=== PATIENT | female | born 1970 | race African-American/Black ===

== ENCOUNTER 2016-11-19 21:55 | Emergency (ER) | payer MEDICARE, OTHER ==
[~2016-11-19] VITALS: Ht 167.6 cm; Wt 75.0 kg
[~2016-11-19 21:55] MED LIST: CALC-586 PO; CARV12.545 PO; FOLI0.8T23 PO; FOS1G PO; HYDR200T PO; ISOS1TAB PO; PRED1TAB PO; SEVE800T PO
[2016-11-19] MEDS ORDERED: ALBUTEROL (0.083%) 2.5MG/3ML NEB HHN STA (21:56)
[2016-11-19] MEDS ORDERED: METHYLPREDNISOLONE SOD SUCC 125 MG/2 ML VIAL IV STA (21:56)
[2016-11-19] MEDS ORDERED: IPRATROPIUM BROMIDE (0.02%) 0.5MG/2.5ML NEB HHN STA (21:56)
[2016-11-19] MEDS ORDERED: MAGNESIUM 2 G PREMIX 50 ML IV STA (21:56)
[2016-11-19] MEDS ORDERED: ALBUTEROL (0.5%) 2.5MG/0.5ML NEB HHN ONE (22:21)
[2016-11-19 22:35] LABS: BASOPHILS % 1.3 % (0.0-2.0); HEMATOCRIT. 35.2 % (36.0-48.0); HEMOGLOBIN. 11.1 g/dL (12.0-16.0); LYMPHOCYTES % 14.5 % (20.0-50.0); MEAN CORPUSCULAR HEMOGLOBIN 28.4 pg (28.0-32.0); MEAN CORPUSCULAR HGB CONC 31.5 g/dL (31.0-37.0); MEAN CORPUSCULAR VOLUME 89.9 fL (81.0-99.0); MEAN PLATELET VOLUME 9.7 fl (7.4-10.4); MONOCYTES % 9.3 % (2.0-8.0); NEUTROPHILS % 71.9 % (40.0-76.0); PLATELET 236 x1000/uL (130-400); RED BLOOD CELL COUNT 3.91 mill/uL (4.2-5.4); RED CELL DISTRIBUTION WIDTH 14.4 % (11.6-14.6)
[2016-11-19 22:38] LABS: CHLORIDE 99 mEq/L (98-107); INDEX HEMOLYSI 1 (1-3); INDEX ICTERIC 1 (1-4); INDEX LIPEMIC 1 (1-3)
[2016-11-19 22:40] LABS: PROTHROMBIN TIME 10.7 sec
[2016-11-19 22:47] LABS: ALANINE AMINOTRANSFERASE 15 IU/L (13-61); ANION GAP 19; CALCIUM 9.6 mg/dL (8.5-10.1); CARBON DIOXIDE 29 mEq/L (21-32); NT PRO B-TYPE NATRIURETIC PEP 2953 pg/mL (5-125); TROPONIN I 0.03 ng/mL (0.00-0.04); UREA NITROGEN BLOOD 48 mg/dL (7-21); eGFR 5 mL/min (>60)
[2016-11-19] MEDS ORDERED: SODIUM CHLORIDE 0.9% 500 ML IV ONE (22:54)
[2016-11-20] MEDS ORDERED: ONDANSETRON HCL 4MG/2ML VIAL IV ONE
[2016-11-20 00:05] VITALS: BP 162/116
== END 2016-11-20 01:24 | disposition home or self-care (01) ==
LOC: ER 21:58
DX: J45.901 Unspecified asthma with (acute) exacerbation (principal); R11.2 Nausea with vomiting, unspecified; I51.7 Cardiomegaly; M32.9 Systemic lupus erythematosus, unspecified; N18.6 End stage renal disease; Z99.2 Dependence on renal dialysis
CPT/HCPCS: 36415; 71010; 80053; 83880; 84484; 85025; 85610; 93005; 94644; 96365; 96366; 96375; 99285; J2405; J2930; J3475; J7611; J7030

== ENCOUNTER 2017-01-11 23:10 | Inpatient (IN) | payer MEDICARE, MEDICAID ==
[~2017-01-11] VITALS: Ht 157.5 cm; Wt 59.0 kg
[2017-01-11] MEDS ORDERED: LABETALOL 5MG/ML SYR 20 MG/4 ML SYRINGE IV ONE (23:45)
[2017-01-11 23:56] LABS: BASOPHILS % 1.1 % (0.0-2.0); EOSINOPHILS % 2.6 % (0.0-5.0); HEMATOCRIT. 32.4 % (36.0-48.0); HEMOGLOBIN. 10.3 g/dL (12.0-16.0); LYMPHOCYTES % 10.3 % (20.0-50.0); MEAN CORPUSCULAR HEMOGLOBIN 28.1 pg (28.0-32.0); MEAN CORPUSCULAR HGB CONC 31.7 g/dL (31.0-37.0); MEAN CORPUSCULAR VOLUME 88.7 fL (81.0-99.0); MEAN PLATELET VOLUME 9.3 fl (7.4-10.4); MONOCYTES % 10.4 % (2.0-8.0); NEUTROPHILS % 75.6 % (40.0-76.0); PLATELET 226 x1000/uL (130-400); RED BLOOD CELL COUNT 3.65 mill/uL (4.2-5.4); RED CELL DISTRIBUTION WIDTH 15.8 % (11.6-14.6); WHITE BLOOD COUNT 14.4 x1000/uL (4.5-11.0)
[2017-01-12 00:16] LABS: ANION GAP 15; CALCIUM 9.7 mg/dL (8.5-10.1); CARBON DIOXIDE 30 mEq/L (21-32); CHLORIDE 99 mEq/L (98-107); INDEX HEMOLYSI 1 (1-3); INDEX ICTERIC 1 (1-4); INDEX LIPEMIC 1 (1-3); TROPONIN I < 0.02 ng/mL (0.00-0.04); UREA NITROGEN BLOOD 32 mg/dL (7-21); eGFR 6 mL/min (>60)
[2017-01-12 08:00] VITALS: BP 151/104
[2017-01-12] MEDS ORDERED: DIPHENHYDRAMINE 50MG/ML VIAL IV NR ×2 (09:18→19:00)
[2017-01-12 09:23] LABS: CALCIUM 8.6 mg/dL (8.5-10.1)
[2017-01-12] MEDS ORDERED: POTASSIUM CHLORIDE 20MEQ TABLET SR PO NR (10:15)
[2017-01-12 11:19] VITALS: BP 160/100
[2017-01-12] MEDS: CARVEDILOL 12.5MG TABLET PO SCH (11:20)
[2017-01-12] MEDS: FOLIC ACID/VITAMIN B COMP W-C TABLET PO SCH (11:20)
[2017-01-12 12:00] VITALS: BP 148/90
[2017-01-12] MEDS: HYDRALAZINE HCL 25MG TABLET PO SCH ×2 (13:35→21:09)
[2017-01-12] MEDS: SEVELAMER CARBONATE 800 MG TABLET PO SCH ×3 (13:35→18:55)
[2017-01-12 16:00] VITALS: BP 143/91
[2017-01-12] MEDS: ISOSORBIDE DINITRATE 20MG TABLET PO SCH (17:17)
[2017-01-12 20:00] VITALS: BP 143/96
[2017-01-12] MEDS ORDERED: EPOETIN ALFA 4000UNITS/ML VIAL SUBCUT SCH (21:00)
[2017-01-13] VITALS: BP 145/95
[2017-01-13 04:00] VITALS: BP 154/98
[2017-01-13] MEDS: HYDRALAZINE HCL 25MG TABLET PO SCH (05:30)
[2017-01-13 06:55] LABS: HEMATOCRIT. 34.7 % (36.0-48.0); HEMOGLOBIN. 11.4 g/dL (12.0-16.0); MEAN CORPUSCULAR HEMOGLOBIN 29.3 pg (28.0-32.0); MEAN CORPUSCULAR HGB CONC 32.7 g/dL (31.0-37.0); MEAN CORPUSCULAR VOLUME 89.4 fL (81.0-99.0); PLATELET 204 x1000/uL (130-400); RED BLOOD CELL COUNT 3.88 mill/uL (4.2-5.4); RED CELL DISTRIBUTION WIDTH 15.6 % (11.6-14.6); WHITE BLOOD COUNT 7.3 x1000/uL (4.5-11.0)
[2017-01-13 07:26] LABS: DIFFERENTIAL COMMENT 1
[2017-01-13 07:35] LABS: CALCIUM 9.3 mg/dL (8.5-10.1); PHOSPHORUS 4.6 mg/dL (2.5-4.9)
[2017-01-13 08:00] VITALS: BP 135/87
[2017-01-13] MEDS: SEVELAMER CARBONATE 800 MG TABLET PO SCH (08:10)
[2017-01-13] MEDS: ISOSORBIDE DINITRATE 20MG TABLET PO SCH (08:34)
[2017-01-13] MEDS: CARVEDILOL 12.5MG TABLET PO SCH (08:35)
[2017-01-13] MEDS: FOLIC ACID/VITAMIN B COMP W-C TABLET PO SCH (08:35)
[2017-01-13 10:29] LABS: GIANT PLATELETS 1+; PLATELET ESTIMATE NORMAL
[2017-01-13 12:00] VITALS: BP 117/86
[2017-01-13 13:34] VITALS: BP 117/86
== END 2017-01-13 14:46 | disposition home or self-care (01) | DRG 291 ==
LOC: ER 23:12 → 7WST 01-12 00:28
PROVIDERS: ADMIT Internal Medicine; ATTEND Internal Medicine
PROC: 5A1D00Z (ICD-10-PCS; principal; 2017-01-12)
DX: I13.2 Hypertensive heart and chronic kidney disease with heart failure and with stage 5 chronic kidney disease, or end stage renal disease (principal); J96.00 Acute respiratory failure, unspecified whether with hypoxia or hypercapnia; I50.31 Acute diastolic (congestive) heart failure; N18.6 End stage renal disease; N25.81 Secondary hyperparathyroidism of renal origin; I42.9 Cardiomyopathy, unspecified; D64.9 Anemia, unspecified; H91.90 Unspecified hearing loss, unspecified ear; J44.9 Chronic obstructive pulmonary disease, unspecified; F41.9 Anxiety disorder, unspecified; T78.3XXA Angioneurotic edema, initial encounter; T36.8X5A Adverse effect of other systemic antibiotics, initial encounter; L30.9 Dermatitis, unspecified; J94.9 Pleural condition, unspecified; M32.9 Systemic lupus erythematosus, unspecified; Z80.8 Family history of malignant neoplasm of other organs or systems; Z82.49 Family history of ischemic heart disease and other diseases of the circulatory system; Z82.5 Family history of asthma and other chronic lower respiratory diseases; Z99.2 Dependence on renal dialysis; Z88.1 Allergy status to other antibiotic agents; Z79.899 Other long term (current) drug therapy; Y92.89 Other specified places as the place of occurrence of the external cause
CPT/HCPCS: 36415; 71010; 80048; 84100; 84484; 85025; 93005; 99285; J0885; J1200; J3490

== ENCOUNTER 2017-02-01 08:10 | Day surgery (SDC) | payer MEDICARE, MEDICAID ==
[~2017-02-01] VITALS: Ht 157.5 cm; Wt 57.2 kg
[2017-02-01] MEDS ORDERED: HYDR-4134 PO (09:33)
[2017-02-01] MEDS ORDERED: IOHEXOL-300 100 ML BOTTLE ONE (10:20)
[2017-02-01] MEDS ORDERED: LIDOCAINE HCL 1% 20ML VIAL (Pyxis) INJ ONE (10:21)
[2017-02-01] MEDS ORDERED: MIDAZOLAM HCL 2 MG/2 ML VIAL ONE ×2 (10:23→10:42)
[2017-02-01] MEDS ORDERED: FENTANYL CITRATE/PF 50MCG/ML 2ML VIAL ONE (10:24)
[2017-02-01] MEDS ORDERED: FAMOTIDINE 20MG/2ML VIAL IV ONE (10:39)
[2017-02-01] MEDS ORDERED: HYDROCORTISONE SOD SUCCINATE 250 MG/2 ML VIAL ONE (10:39)
[2017-02-01] MEDS ORDERED: DIPHENHYDRAMINE 50MG/ML VIAL ONE (10:39)
[2017-02-01] MEDS ORDERED: ONDANSETRON HCL 4MG/2ML VIAL IV PRN (11:15)
[2017-02-01 11:54] LABS: HEPATITIS B SURFACE ANTIGEN NEGATIVE
[2017-02-01 12:22] LABS: HEPATITIS C VIR.AB 0.14 INDEXVAL (0.00-0.80)
[2017-02-01] MEDS ORDERED: ACETAMINOPHEN WITH CODEINE 300/30MG TABLET PO NR (15:15)
[2017-02-01 16:34] VITALS: BP 156/97
== END 2017-02-01 17:05 | disposition home or self-care (01) ==
LOC: CCL 08:10
PROVIDERS: ATTEND Specialist
DX: I12.0 Hypertensive chronic kidney disease with stage 5 chronic kidney disease or end stage renal disease (principal); I73.89 Other specified peripheral vascular diseases; N18.6 End stage renal disease; I50.30 Unspecified diastolic (congestive) heart failure; I70.213 Atherosclerosis of native arteries of extremities with intermittent claudication, bilateral legs
CPT/HCPCS: 36246; 36415; 75630; 75710; 93458; C1760; C1769; C1887; C1893; J1200; J1644; J1720; J2250; J3010; J3490; Q9967

== ENCOUNTER 2018-05-06 09:58 | Emergency (ER) | payer MEDICARE, MEDICAID ==
[~2018-05-06] VITALS: Ht 154.9 cm; Wt 55.0 kg
[~2018-05-06 09:58] MED LIST changes: +AMLO10TA80 MT; +CYCL10TA7 MT; +FAMO20TA8 MT; +HYDR-4134 PO; -HYDR200T PO; +HYDR200T80 PO; +LORA10TA7 MT; +MINO2.5T2 MT; +PRED1TAB MT; +REN800 PO; -SEVE800T PO
[2018-05-06 10:05] VITALS: BP 153/91
[2018-05-06] MEDS ORDERED: TETRACAINE 0.5% OPHTH DROPS 4ML OP ONE (11:45)
[2018-05-06] MEDS ORDERED: FLUORESCEIN SODIUM 1MG/STRIP OP ONE (11:45)
== END 2018-05-06 13:53 | disposition home or self-care (01) ==
LOC: ER 10:49
DX: H10.9 Unspecified conjunctivitis (principal); I13.0 Hypertensive heart and chronic kidney disease with heart failure and stage 1 through stage 4 chronic kidney disease, or unspecified chronic kidney disease; N18.9 Chronic kidney disease, unspecified; I50.9 Heart failure, unspecified; H91.90 Unspecified hearing loss, unspecified ear; J44.9 Chronic obstructive pulmonary disease, unspecified
CPT/HCPCS: 99283

== ENCOUNTER 2018-07-19 17:24 | Inpatient (IN) | payer MEDICARE, MEDICAID ==
[~2018-07-19] VITALS: Ht 157.5 cm; Wt 56.5 kg
[2018-07-19 19:21] LABS: BASOPHILS % 0.6 % (0.0-2.0); EOSINOPHILS % 4.1 % (0.0-5.0); HEMATOCRIT. 33.5 % (36.0-48.0); HEMOGLOBIN. 10.8 g/dL (12.0-16.0); LYMPHOCYTES % 12.2 % (20.0-50.0); MEAN CORPUSCULAR HEMOGLOBIN 32.4 pg (28.0-32.0); MEAN PLATELET VOLUME 9.9 fl (7.4-10.4); MONOCYTES % 14.4 % (2.0-8.0); NEUTROPHILS % 68.7 % (40.0-76.0); PLATELET 185 x1000/uL (130-400); RED BLOOD CELL COUNT 3.35 mill/uL (4.2-5.4); RED CELL DISTRIBUTION WIDTH 16.3 % (11.6-14.6)
[2018-07-19 19:28] LABS: CHLORIDE 102 mEq/L (98-107)
[2018-07-19 19:31] LABS: HCG SCREEN NEGATIVE
[2018-07-19 22:40] VITALS: BP 150/90
[2018-07-20] VITALS (7 sets, daily range): BP systolic 137–163; BP diastolic 83–99
[2018-07-20] MEDS ORDERED: IPRATROPIUM/ALBUTEROL 0.5-3(2.5)MG/3ML NEB HHN STA (00:45)
[2018-07-20] MEDS ORDERED: MORPHINE SULFATE 4 MG/ML CPJ (NOT FOR IM USE) IV PRN (01:00)
[2018-07-20] MEDS ORDERED: ACETAMINOPHEN 325MG TABLET PO PRN (01:00)
[2018-07-20] MEDS ORDERED: IPRATROPIUM/ALBUTEROL 0.5-3(2.5)MG/3ML NEB HHN PRN (01:00)
[2018-07-20] MEDS: IPRATROPIUM/ALBUTEROL 0.5-3(2.5)MG/3ML NEB HHN SCH ×5 (04:01→20:45)
[2018-07-20] MEDS ORDERED: CYCLOBENZAPRINE 10MG TABLET PO PRN (08:45)
[2018-07-20] MEDS ORDERED: ENOXAPARIN 40MG/0.4ML SYR SUBCUT SCH (09:00)
[2018-07-20] MEDS: AMLODIPINE 10MG TABLET PO SCH (09:00)
[2018-07-20] MEDS: DOCUSATE SODIUM 250MG CAPSULE PO SCH (09:18)
[2018-07-20] MEDS: ENOXAPARIN 30MG/0.3ML SYR SUBCUT SCH (09:18)
[2018-07-20] MEDS: CALCIUM CARBONATE 1250MG TABLET (500MG ELEMENTAL CALCIUM) PO SCH (09:19)
[2018-07-20] MEDS: FAMOTIDINE 20MG TABLET PO SCH (09:19)
[2018-07-20] MEDS: FOLIC ACID/VITAMIN B COMP W-C TABLET PO SCH (09:19)
[2018-07-20] MEDS: CARVEDILOL 12.5MG TABLET PO SCH ×2 (09:20→20:39)
[2018-07-20] MEDS: ISOSORB DINIT/HYDRALAZINE HCL 20/37.5MG TABLET PO SCH ×2 (10:00→20:39)
[2018-07-20] MEDS: CALCIUM ACETATE 667MG CAPSULE PO SCH ×3 (12:25→20:41)
[2018-07-20] MEDS: PREDNISONE 1MG TABLET PO SCH (12:25)
[2018-07-20] MEDS: HYDROXYCHLOROQUINE SULFATE 200MG TABLET PO SCH (12:25)
[2018-07-20] MEDS ORDERED: SEVELAMER CARBONATE 800 MG TABLET PO SCH (12:50)
[2018-07-20] MEDS ORDERED: HYDRALAZINE HCL 25MG TABLET PO SCH (14:00)
[2018-07-20] MEDS ORDERED: DIPHENHYDRAMINE 50MG/ML VIAL IV PRN (15:50)
[2018-07-20] MEDS ORDERED: ONDANSETRON HCL 4MG/2ML INJ IV PRN (16:30)
[2018-07-21] VITALS: BP 144/93
[2018-07-21] MEDS: IPRATROPIUM/ALBUTEROL 0.5-3(2.5)MG/3ML NEB HHN SCH ×4 (00:41→12:51)
[2018-07-21 04:00] VITALS: BP 135/87
[2018-07-21 07:20] LABS: BASOPHILS % 0.4 % (0.0-2.0); EOSINOPHILS % 3.4 % (0.0-5.0); HEMATOCRIT. 33.1 % (36.0-48.0); HEMOGLOBIN. 10.8 g/dL (12.0-16.0); LYMPHOCYTES % 8.2 % (20.0-50.0); MEAN CORPUSCULAR HEMOGLOBIN 33.3 pg (28.0-32.0); MEAN CORPUSCULAR VOLUME 102.2 fL (81.0-99.0); MEAN PLATELET VOLUME 10.4 fl (7.4-10.4); MONOCYTES % 12.4 % (2.0-8.0); NEUTROPHILS % 75.6 % (40.0-76.0); PLATELET 159 x1000/uL (130-400); RED BLOOD CELL COUNT 3.24 mill/uL (4.2-5.4); RED CELL DISTRIBUTION WIDTH 15.7 % (11.6-14.6)
[2018-07-21 08:00] VITALS: BP 163/97
[2018-07-21 08:10] LABS: PHOSPHORUS 6.9 mg/dL (2.5-4.9)
[2018-07-21] MEDS ORDERED: MINOXIDIL 2.5MG TABLET PO SCH (09:00)
[2018-07-21] MEDS ORDERED: LACTULOSE 20G/30ML UDC PO PRN (09:00)
[2018-07-21] MEDS: DOCUSATE SODIUM 250MG CAPSULE PO SCH (09:14)
[2018-07-21] MEDS: CARVEDILOL 12.5MG TABLET PO SCH (09:15)
[2018-07-21] MEDS: ISOSORB DINIT/HYDRALAZINE HCL 20/37.5MG TABLET PO SCH (09:15)
[2018-07-21] MEDS: AMLODIPINE 10MG TABLET PO SCH (09:15)
[2018-07-21] MEDS: FAMOTIDINE 20MG TABLET PO SCH (09:16)
[2018-07-21] MEDS: PREDNISONE 1MG TABLET PO SCH (09:16)
[2018-07-21] MEDS: HYDROXYCHLOROQUINE SULFATE 200MG TABLET PO SCH (09:16)
[2018-07-21] MEDS: CALCIUM CARBONATE 1250MG TABLET (500MG ELEMENTAL CALCIUM) PO SCH (09:16)
[2018-07-21] MEDS: FOLIC ACID/VITAMIN B COMP W-C TABLET PO SCH (09:16)
[2018-07-21] MEDS: ENOXAPARIN 30MG/0.3ML SYR SUBCUT SCH (09:51)
[2018-07-21 12:20] VITALS: BP 143/97
[2018-07-21] MEDS ORDERED: CALCIUM ACETATE 667MG CAPSULE PO SCH (12:50)
[2018-07-21 14:04] VITALS: BP 122/74
[2018-07-21] MEDS ORDERED: DOXAZOSIN MESYLATE 2MG TABLET PO SCH (21:00)
[2018-07-22] MEDS ORDERED: EPOETIN ALFA 4000UNITS/ML VIAL SUBCUT SCH (21:00)
== END 2018-07-21 14:30 | disposition home or self-care (01) | DRG 291 ==
LOC: ER 17:24 → 6WST 20:37 → EDBEDREQ 20:41 → EDBEDREQTM 20:41 → ENRESERV 21:05
PROVIDERS: ADMIT Internal Medicine; ATTEND Internal Medicine
PROC: 5A1D70Z Performance of Urinary Filtration, Intermittent, Less than 6 Hours Per Day (ICD-10-PCS; principal; 2018-07-20)
PROC: 5A1D70Z Performance of Urinary Filtration, Intermittent, Less than 6 Hours Per Day (ICD-10-PCS; 2018-07-21)
DX: I13.2 Hypertensive heart and chronic kidney disease with heart failure and with stage 5 chronic kidney disease, or end stage renal disease (principal); I50.31 Acute diastolic (congestive) heart failure; N18.6 End stage renal disease; E46 Unspecified protein-calorie malnutrition; N25.81 Secondary hyperparathyroidism of renal origin; D64.9 Anemia, unspecified; F41.9 Anxiety disorder, unspecified; H91.90 Unspecified hearing loss, unspecified ear; J44.9 Chronic obstructive pulmonary disease, unspecified; K59.00 Constipation, unspecified; M32.9 Systemic lupus erythematosus, unspecified; Z88.1 Allergy status to other antibiotic agents; Z88.8 Allergy status to other drugs, medicaments and biological substances
CPT/HCPCS: 36415; 71045; 71250; 80048; 83880; 84100; 84484; 84703; 93005; 93306; 93970; 94640; 99285; J1200; J1650; J2405; J7030; J7050; J7512; J7620

== ENCOUNTER 2018-07-22 05:48 | Inpatient (IN) | payer MEDICARE, MEDICAID ==
[~2018-07-22] VITALS: Ht 157.5 cm; Wt 59.9 kg
[2018-07-22] VITALS (7 sets, daily range): BP systolic 138–144; BP diastolic 79–88
[2018-07-22] MEDS ORDERED: METHYLPREDNISOLONE SOD SUCC 125 MG/2 ML VIAL IV STA (06:37)
[2018-07-22] MEDS ORDERED: ALBUTEROL (0.083%) 2.5MG/3ML NEB HHN STA ×2 (06:37→09:42)
[2018-07-22] MEDS ORDERED: IPRATROPIUM BROMIDE (0.02%) 0.5MG/2.5ML NEB HHN STA (06:37)
[2018-07-22 07:30] LABS: CHLORIDE 99 mEq/L (98-107)
[2018-07-22 07:33] LABS: BASOPHILS % 0.3 % (0.0-2.0); EOSINOPHILS % 3.2 % (0.0-5.0); HEMATOCRIT. 37.3 % (36.0-48.0); LYMPHOCYTES % 11.2 % (20.0-50.0); MEAN CORPUSCULAR HEMOGLOBIN 33.1 pg (28.0-32.0); MEAN CORPUSCULAR VOLUME 103.2 fL (81.0-99.0); MEAN PLATELET VOLUME 9.9 fl (7.4-10.4); MONOCYTES % 10.9 % (2.0-8.0); NEUTROPHILS % 74.4 % (40.0-76.0); PLATELET 162 x1000/uL (130-400); RED BLOOD CELL COUNT 3.61 mill/uL (4.2-5.4)
[2018-07-22] MEDS ORDERED: LEVOFLOXACIN 750MG PREMIX 150 ML IV ONE (11:45)
[2018-07-22] MEDS: CALCIUM CARBONATE 1250MG TABLET (500MG ELEMENTAL CALCIUM) PO SCH (16:30)
[2018-07-22] MEDS: CARVEDILOL 12.5MG TABLET PO SCH (17:00)
[2018-07-22] MEDS: LORATADINE 10MG TABLET PO SCH (17:00)
[2018-07-22] MEDS: METHYLPREDNISOLONE SOD SUCC 40 MG/ML VIAL IV SCH (17:00)
[2018-07-22] MEDS: AMLODIPINE 10MG TABLET PO SCH (17:00)
[2018-07-22] MEDS: ISOSORB DINIT/HYDRALAZINE HCL 20/37.5MG TABLET PO SCH (17:00)
[2018-07-22] MEDS: DOCUSATE SODIUM 100MG CAPSULE PO SCH (18:45)
[2018-07-22] MEDS ORDERED: LORAZEPAM 1MG TABLET PO PRN (18:45)
[2018-07-22] MEDS ORDERED: DIPHENHYDRAMINE 50MG/ML VIAL IV NR (18:45)
[2018-07-23] VITALS (18 sets, daily range): BP systolic 113–182; BP diastolic 65–119
[2018-07-23] MEDS: IPRATROPIUM/ALBUTEROL 0.5-3(2.5)MG/3ML NEB HHN SCH ×6 (00:56→19:47)
[2018-07-23] MEDS: METHYLPREDNISOLONE SOD SUCC 40 MG/ML VIAL IV SCH ×3 (01:00→17:33)
[2018-07-23 07:33] LABS: HEMATOCRIT. 36.9 % (36.0-48.0); HEMOGLOBIN. 11.9 g/dL (12.0-16.0); MEAN CORPUSCULAR HEMOGLOBIN 32.8 pg (28.0-32.0); MEAN CORPUSCULAR VOLUME 101.9 fL (81.0-99.0); MEAN PLATELET VOLUME 10.9 fl (7.4-10.4); PLATELET 156 x1000/uL (130-400); RED BLOOD CELL COUNT 3.62 mill/uL (4.2-5.4)
[2018-07-23] MEDS: CALCIUM CARBONATE 1250MG TABLET (500MG ELEMENTAL CALCIUM) PO SCH (08:54)
[2018-07-23] MEDS: DOCUSATE SODIUM 100MG CAPSULE PO SCH ×2 (08:54→17:32)
[2018-07-23] MEDS: LORATADINE 10MG TABLET PO SCH (08:57)
[2018-07-23] MEDS: ISOSORB DINIT/HYDRALAZINE HCL 20/37.5MG TABLET PO SCH ×2 (08:58→17:32)
[2018-07-23] MEDS: AMLODIPINE 10MG TABLET PO SCH (08:58)
[2018-07-23] MEDS: CARVEDILOL 12.5MG TABLET PO SCH (08:58)
[2018-07-23] MEDS ORDERED: FOLIC ACID/VITAMIN B COMP W-C TABLET PO SCH (09:00)
[2018-07-23] MEDS: CALCIUM ACETATE 667MG CAPSULE PO SCH ×2 (12:20→17:33)
[2018-07-23 12:24] LABS: PARTIAL THROMBOPLASTIN TIME 26.4 sec (23.4-31.0)
[2018-07-23] MEDS ORDERED: SODIUM BICARBONATE 4% (2.4MEQ) 5ML VIAL IV ONE (12:45)
[2018-07-23] MEDS: DILTIAZEM HCL 60MG TABLET PO SCH ×2 (13:24→22:02)
[2018-07-23 17:32] LABS: PLATELET ESTIMATE NORMAL
[2018-07-24] VITALS (9 sets, daily range): BP systolic 113–163; BP diastolic 68–98
[2018-07-24] MEDS: METHYLPREDNISOLONE SOD SUCC 40 MG/ML VIAL IV SCH ×3 (03:49→16:53)
[2018-07-24] MEDS: IPRATROPIUM/ALBUTEROL 0.5-3(2.5)MG/3ML NEB HHN SCH ×7 (04:05→23:47)
[2018-07-24] MEDS: DILTIAZEM HCL 60MG TABLET PO SCH ×3 (06:06→22:27)
[2018-07-24] MEDS: CALCIUM ACETATE 667MG CAPSULE PO SCH ×3 (06:08→16:52)
[2018-07-24 06:56] LABS: HEMATOCRIT. 37.5 % (36.0-48.0); HEMOGLOBIN. 12.3 g/dL (12.0-16.0); MEAN CORPUSCULAR HEMOGLOBIN 33.2 pg (28.0-32.0); MEAN CORPUSCULAR VOLUME 101.3 fL (81.0-99.0); MEAN PLATELET VOLUME 10.5 fl (7.4-10.4); PLATELET 177 x1000/uL (130-400); RED CELL DISTRIBUTION WIDTH 15.9 % (11.6-14.6)
[2018-07-24] MEDS ORDERED: DIPHENHYDRAMINE 50MG/ML VIAL IV PRN (07:00)
[2018-07-24 07:13] LABS: CHLORIDE 98 mEq/L (98-107)
[2018-07-24] MEDS: DOCUSATE SODIUM 100MG CAPSULE PO SCH ×2 (08:27→16:53)
[2018-07-24] MEDS: CALCIUM CARBONATE 1250MG TABLET (500MG ELEMENTAL CALCIUM) PO SCH (08:27)
[2018-07-24] MEDS: LORATADINE 10MG TABLET PO SCH (08:27)
[2018-07-24] MEDS: FOLIC ACID/VITAMIN B COMP W-C TABLET PO SCH (08:46)
[2018-07-24] MEDS: ISOSORB DINIT/HYDRALAZINE HCL 20/37.5MG TABLET PO SCH ×2 (09:00→17:44)
[2018-07-24] MEDS: CARVEDILOL 12.5MG TABLET PO SCH ×2 (09:00→18:06)
[2018-07-24 11:25] LABS: PLATELET ESTIMATE NORMAL
[2018-07-24] MEDS ORDERED: EPOETIN ALFA 4000UNITS/ML VIAL SUBCUT SCH (21:00)
[2018-07-25] VITALS (12 sets, daily range): BP systolic 127–168; BP diastolic 74–116
[2018-07-25] MEDS: METHYLPREDNISOLONE SOD SUCC 40 MG/ML VIAL IV SCH ×2 (00:07→09:05)
[2018-07-25] MEDS: DOCUSATE SODIUM 100MG CAPSULE PO SCH ×2 (00:07→16:48)
[2018-07-25] MEDS: IPRATROPIUM/ALBUTEROL 0.5-3(2.5)MG/3ML NEB HHN SCH ×5 (04:39→20:28)
[2018-07-25 06:16] LABS: HEMATOCRIT. 39.8 % (36.0-48.0); HEMOGLOBIN. 12.8 g/dL (12.0-16.0); MEAN CORPUSCULAR HEMOGLOBIN 32.3 pg (28.0-32.0); MEAN CORPUSCULAR VOLUME 100.5 fL (81.0-99.0); MEAN PLATELET VOLUME 11.3 fl (7.4-10.4); PLATELET 166 x1000/uL (130-400); RED BLOOD CELL COUNT 3.96 mill/uL (4.2-5.4); RED CELL DISTRIBUTION WIDTH 15.6 % (11.6-14.6)
[2018-07-25] MEDS: DILTIAZEM HCL 60MG TABLET PO SCH ×3 (06:34→22:17)
[2018-07-25] MEDS: CALCIUM ACETATE 667MG CAPSULE PO SCH ×3 (06:35→16:48)
[2018-07-25] MEDS: FOLIC ACID/VITAMIN B COMP W-C TABLET PO SCH (09:05)
[2018-07-25] MEDS: CALCIUM CARBONATE 1250MG TABLET (500MG ELEMENTAL CALCIUM) PO SCH (09:05)
[2018-07-25] MEDS: LORATADINE 10MG TABLET PO SCH (09:05)
[2018-07-25] MEDS: ISOSORB DINIT/HYDRALAZINE HCL 20/37.5MG TABLET PO SCH ×2 (09:06→16:50)
[2018-07-25] MEDS: CARVEDILOL 12.5MG TABLET PO SCH (09:06)
[2018-07-25] MEDS: LACTULOSE 20G/30ML UDC PO PRN ×2 (09:28→20:32)
[2018-07-25 14:32] LABS: PLATELET ESTIMATE NORMAL
[2018-07-25] MEDS ORDERED: METHYLPREDNISOLONE SOD SUCC 40 MG/ML VIAL IV NR (22:00)
[2018-07-25] MEDS ORDERED: CLONIDINE 0.1MG TABLET PO PRN (22:00)
[2018-07-26] VITALS (11 sets, daily range): BP systolic 104–171; BP diastolic 66–106
[2018-07-26] MEDS: IPRATROPIUM/ALBUTEROL 0.5-3(2.5)MG/3ML NEB HHN SCH ×5 (01:07→16:12)
[2018-07-26] MEDS: DILTIAZEM HCL 60MG TABLET PO SCH ×2 (06:00→15:25)
[2018-07-26] MEDS: DOCUSATE SODIUM 100MG CAPSULE PO SCH (08:47)
[2018-07-26] MEDS: FOLIC ACID/VITAMIN B COMP W-C TABLET PO SCH (08:47)
[2018-07-26] MEDS: CARVEDILOL 12.5MG TABLET PO SCH (08:48)
[2018-07-26] MEDS: ISOSORB DINIT/HYDRALAZINE HCL 20/37.5MG TABLET PO SCH (08:48)
[2018-07-26] MEDS: CALCIUM CARBONATE 1250MG TABLET (500MG ELEMENTAL CALCIUM) PO SCH (08:48)
[2018-07-26] MEDS: CALCIUM ACETATE 667MG CAPSULE PO SCH ×2 (08:48→12:11)
[2018-07-26] MEDS: LORATADINE 10MG TABLET PO SCH (08:48)
[2018-07-26] MEDS ORDERED: PREDNISONE 20MG TABLET PO SCH ×2 (09:00→16:15)
[2018-07-26] MEDS ORDERED: DIPHENHYDRAMINE 50MG/ML VIAL ONE (12:14)
[2018-07-26] MEDS ORDERED: DIPHENHYDRAMINE 50MG/ML VIAL IV NR (12:15)
[2018-07-26] MEDS ORDERED: HEPARIN SODIUM 1,000 UNIT/1ML VIAL IV NR (12:30)
[2018-07-26] MEDS ORDERED: ISOS1TAB PO ×2 (15:52→15:53)
== END 2018-07-26 17:40 | disposition home or self-care (01) | DRG 189 ==
LOC: ER 05:48 → ENRESERV 11:30 → 3WST 11:40 → EDBEDREQSVC 11:43 → EDBEDREQTM 11:43 → EDBEDREQ 11:43
PROVIDERS: ADMIT Internal Medicine; ATTEND Internal Medicine
PROC: 0W9B3ZZ Drainage of Left Pleural Cavity, Percutaneous Approach (ICD-10-PCS; principal; 2018-07-23)
PROC: 5A1D70Z Performance of Urinary Filtration, Intermittent, Less than 6 Hours Per Day (ICD-10-PCS; 2018-07-24)
DX: J96.20 Acute and chronic respiratory failure, unspecified whether with hypoxia or hypercapnia (principal); N18.6 End stage renal disease; J44.1 Chronic obstructive pulmonary disease with (acute) exacerbation; J45.901 Unspecified asthma with (acute) exacerbation; E46 Unspecified protein-calorie malnutrition; I42.9 Cardiomyopathy, unspecified; I50.32 Chronic diastolic (congestive) heart failure; N25.81 Secondary hyperparathyroidism of renal origin; I13.2 Hypertensive heart and chronic kidney disease with heart failure and with stage 5 chronic kidney disease, or end stage renal disease; J98.4 Other disorders of lung; K59.00 Constipation, unspecified; J94.1 Fibrothorax; R00.0 Tachycardia, unspecified; D64.9 Anemia, unspecified; M32.9 Systemic lupus erythematosus, unspecified; I27.20 Pulmonary hypertension, unspecified; F41.9 Anxiety disorder, unspecified; H91.90 Unspecified hearing loss, unspecified ear; Z99.2 Dependence on renal dialysis; Z88.1 Allergy status to other antibiotic agents; Z88.8 Allergy status to other drugs, medicaments and biological substances; Z79.899 Other long term (current) drug therapy; Z68.24 Body mass index [BMI] 24.0-24.9, adult
CPT/HCPCS: 32555; 36415; 71045; 80048; 83615; 83735; 83880; 83970; 84484; 88305; 88312; 93005; 94618; 94640; 94644; 96374; 99285; J1200; J1644; J2920; J2930; J3490; J7512; J7611; J7620

== ENCOUNTER 2019-02-06 14:59 | Inpatient (IN) | payer MEDICARE, MEDICAID ==
[~2019-02-06] VITALS: Ht 157.5 cm; Wt 57.6 kg
[~2019-02-06 14:59] MED LIST changes: -HYDR-4134 PO; -PRED1TAB MT; -PRED1TAB PO; -REN800 PO
[2019-02-06 16:43] LABS: HEMATOCRIT. 36.9 % (36.0-48.0); HEMOGLOBIN. 11.9 g/dL (12.0-16.0); MEAN CORPUSCULAR VOLUME 101.7 fL (81.0-99.0); MEAN PLATELET VOLUME 8.6 fl (7.4-10.4); PLATELET 158 x1000/uL (130-400); RED BLOOD CELL COUNT 3.62 mill/uL (4.2-5.4); RED CELL DISTRIBUTION WIDTH 14.7 % (11.6-14.6)
[2019-02-06 16:51] LABS: PARTIAL THROMBOPLASTIN TIME 27.3 sec (23.4-31.0)
[2019-02-06 17:06] LABS: HCG SCREEN NEGATIVE
[2019-02-06 17:25] LABS: PLATELET ESTIMATE NORMAL
[2019-02-06] MEDS ORDERED: MORPHINE SULFATE 4 MG/ML CPJ (NOT FOR IM USE) IV ONE (19:30)
[2019-02-06] MEDS ORDERED: DEXAMETHASONE 4MG/ML 1ML VIAL IV NR (20:21)
[2019-02-06] MEDS ORDERED: NICARDIPINE 100 MG in SODIUM CHLORIDE 0.9% 60 ML IV PRN ×4 (20:30)
[2019-02-06] MEDS ORDERED: LIDOCAINE 1%/EPI 1:100,000 10 ML VIAL IJ ONE (21:45)
[2019-02-06] MEDS ORDERED: LIDOCAINE HCL/EPINEPHRINE 1%-EPI 1:100,000 20 ML VIAL IJ SCH (21:53)
[2019-02-06] MEDS ORDERED: ONDANSETRON HCL 4MG/2ML INJ IV ONE (22:30)
[2019-02-06] MEDS ORDERED: DEXT 5%/LACTATED RINGERS 1,000 ML IV SCH (23:15)
[2019-02-07] VITALS (100 sets, daily range): BP systolic 101–158; BP diastolic 60–99
[2019-02-07] MEDS: DEXAMETHASONE 4MG/ML 1ML VIAL IV SCH ×4 (00:30→17:50)
[2019-02-07] MEDS: MORPHINE SULFATE 2 MG/ML CPJ (NOT FOR IM USE) IV PRN ×2 (00:32→22:50)
[2019-02-07] MEDS ORDERED: DEXTROSE 50% WATER 50ML SYRINGE IV PRN (01:00)
[2019-02-07 04:14] LABS: BASOPHILS % 0.3 % (0.0-2.0); EOSINOPHILS % 0.2 % (0.0-5.0); HEMATOCRIT. 37.4 % (36.0-48.0); HEMOGLOBIN. 12.1 g/dL (12.0-16.0); LYMPHOCYTES % 10.5 % (20.0-50.0); MEAN CORPUSCULAR HEMOGLOBIN 32.9 pg (28.0-32.0); MEAN PLATELET VOLUME 8.8 fl (7.4-10.4); MONOCYTES % 1.1 % (2.0-8.0); NEUTROPHILS % 87.9 % (40.0-76.0); PLATELET 143 x1000/uL (130-400); RED BLOOD CELL COUNT 3.66 mill/uL (4.2-5.4); RED CELL DISTRIBUTION WIDTH 14.7 % (11.6-14.6)
[2019-02-07] MEDS: BLOOD SUGAR DIAGNOSTIC STRIP TEST SCH ×3 (05:30→17:20)
[2019-02-07] MEDS: INSULIN LISPRO 100 UNITS/ML SUBCUT SCH ×3 (05:30→17:20)
[2019-02-07] MEDS: DEXT 5%/0.9% NACL 1,000 ML IV SCH (06:36)
[2019-02-07] MEDS ORDERED: LEVETIRACETAM 500MG PREMIX 100 ML IV SCH (09:00)
[2019-02-07] MEDS: LEVETIRACETAM 500MG in SODIUM CHLORIDE 0.9% 100ML IV SCH ×2 (10:02→21:14)
[2019-02-07] MEDS: ISOSORB DINIT/HYDRALAZINE HCL 20/37.5MG TABLET PO SCH (17:00)
[2019-02-08] VITALS (73 sets, daily range): BP systolic 96–148; BP diastolic 38–86
[2019-02-08] MEDS: BLOOD SUGAR DIAGNOSTIC STRIP TEST SCH ×4 (00:33→17:15)
[2019-02-08] MEDS: DEXAMETHASONE 4MG/ML 1ML VIAL IV SCH ×4 (00:37→17:15)
[2019-02-08] MEDS: MORPHINE SULFATE 2 MG/ML CPJ (NOT FOR IM USE) IV PRN (00:43)
[2019-02-08] MEDS: INSULIN LISPRO 100 UNITS/ML SUBCUT SCH ×4 (06:00→17:23)
[2019-02-08] MEDS: DEXT 5%/0.9% NACL 1,000 ML IV SCH (07:04)
[2019-02-08] MEDS ORDERED: FAMOTIDINE 20MG/2ML VIAL IV SCH (09:00)
[2019-02-08] MEDS: LEVETIRACETAM 500MG in SODIUM CHLORIDE 0.9% 100ML IV SCH ×2 (09:35→21:38)
[2019-02-08] MEDS: AMLODIPINE 10MG TABLET PO SCH (09:36)
[2019-02-08] MEDS: ISOSORB DINIT/HYDRALAZINE HCL 20/37.5MG TABLET PO SCH ×2 (09:36→17:15)
[2019-02-08] MEDS: LORATADINE 10MG TABLET PO SCH (09:36)
[2019-02-08] MEDS: FOLIC ACID/VITAMIN B COMP W-C TABLET PO SCH (09:36)
[2019-02-08] MEDS: CARVEDILOL 12.5MG TABLET PO SCH (09:37)
[2019-02-08 10:33] LABS: BASOPHILS % 0.1 % (0.0-2.0); HEMATOCRIT. 35.6 % (36.0-48.0); LYMPHOCYTES % 7.7 % (20.0-50.0); MEAN CORPUSCULAR HEMOGLOBIN 32.5 pg (28.0-32.0); MEAN CORPUSCULAR VOLUME 105.4 fL (81.0-99.0); MEAN PLATELET VOLUME 8.9 fl (7.4-10.4); MONOCYTES % 4.2 % (2.0-8.0); PLATELET 129 x1000/uL (130-400); RED BLOOD CELL COUNT 3.38 mill/uL (4.2-5.4); RED CELL DISTRIBUTION WIDTH 14.7 % (11.6-14.6)
[2019-02-08] MEDS ORDERED: ACETAMINOPHEN 650MG/20.3ML UDC PO PRN (13:00)
[2019-02-08] MEDS ORDERED: LACTULOSE 20G/30ML UDC PO PRN (22:30)
[2019-02-08] MEDS ORDERED: LACTULOSE 20G/30ML UDC PO NR (22:30)
[2019-02-09] VITALS (24 sets, daily range): BP systolic 98–131; BP diastolic 47–72
[2019-02-09] MEDS: DEXAMETHASONE 4MG/ML 1ML VIAL IV SCH ×3 (00:37→11:45)
[2019-02-09] MEDS: BLOOD SUGAR DIAGNOSTIC STRIP TEST SCH ×3 (00:38→12:38)
[2019-02-09] MEDS: INSULIN LISPRO 100 UNITS/ML SUBCUT SCH ×3 (06:00→12:00)
[2019-02-09] MEDS ORDERED: FAMOTIDINE 20MG TABLET PO SCH (09:00)
[2019-02-09] MEDS: CARVEDILOL 12.5MG TABLET PO SCH (10:17)
[2019-02-09] MEDS: FOLIC ACID/VITAMIN B COMP W-C TABLET PO SCH (10:17)
[2019-02-09] MEDS: LORATADINE 10MG TABLET PO SCH (10:18)
[2019-02-09] MEDS: AMLODIPINE 10MG TABLET PO SCH (10:18)
[2019-02-09] MEDS: LEVETIRACETAM 500MG in SODIUM CHLORIDE 0.9% 100ML IV SCH (10:24)
[2019-02-09] MEDS: ISOSORB DINIT/HYDRALAZINE HCL 20/37.5MG TABLET PO SCH (11:45)
== END 2019-02-09 15:20 | disposition home health service (06) | DRG 85 ==
LOC: ER 15:56 → MICUSO 20:04 → EDBEDREQSVC 20:11 → EDBEDREQ 20:11 → EDBEDREQTM 20:11 → ENRESERV 21:56 → 8WST 02-09 09:34
PROVIDERS: ADMIT Internal Medicine; ATTEND Internal Medicine
PROC: 0HQ0XZZ Repair Scalp Skin, External Approach (ICD-10-PCS; principal; 2019-02-06)
DX: S06.5X0A Traumatic subdural hemorrhage without loss of consciousness, initial encounter (principal); N18.6 End stage renal disease; I42.9 Cardiomyopathy, unspecified; I12.0 Hypertensive chronic kidney disease with stage 5 chronic kidney disease or end stage renal disease; E11.22 Type 2 diabetes mellitus with diabetic chronic kidney disease; E11.51 Type 2 diabetes mellitus with diabetic peripheral angiopathy without gangrene; E87.5 Hyperkalemia; F41.9 Anxiety disorder, unspecified; H91.10 Presbycusis, unspecified ear; K59.09 Other constipation; S01.01XA Laceration without foreign body of scalp, initial encounter; W01.0XXA Fall on same level from slipping, tripping and stumbling without subsequent striking against object, initial encounter; J44.9 Chronic obstructive pulmonary disease, unspecified; M32.9 Systemic lupus erythematosus, unspecified; Z79.52 Long term (current) use of systemic steroids; Z79.899 Other long term (current) drug therapy; Z99.2 Dependence on renal dialysis; Z88.1 Allergy status to other antibiotic agents; Z88.9 Allergy status to unspecified drugs, medicaments and biological substances; Y93.89 Activity, other specified; Y92.89 Other specified places as the place of occurrence of the external cause; Y99.8 Other external cause status
CPT/HCPCS: 36415; 80048; 82962; 84703; 86850; 86900; 96374; 96375; 97162; 97166; 99291; J1100; J1953; J2270; J2405; J3490; J7042; J7050

== ENCOUNTER 2019-08-13 10:25 | Inpatient (IN) | payer MEDICARE, MEDICAID ==
[~2019-08-13] VITALS: Ht 157.5 cm; Wt 59.0 kg
[2019-08-13] MEDS ORDERED: TETANUS, DIPHTHERIA, PERTUSSIS VAC/PF 0.5ML (>7YR OLD) IM ONE (11:00)
[2019-08-13] MEDS ORDERED: LIDOCAINE 1%/EPI 1:100,000 10 ML VIAL IJ ONE (11:00)
[2019-08-13] MEDS ORDERED: TRANEXAMIC ACID 1,000 MG/10 ML IV ONE (11:00)
[2019-08-13] MEDS ORDERED: LIDOCAINE HCL/EPINEPHRINE 1%-EPI 1:100,000 20 ML VIAL INFIL ONE (11:09)
[2019-08-13 11:21] LABS: BASOPHILS % 0.9 % (0.0-2.0); EOSINOPHILS % 5.2 % (0.0-5.0); HEMATOCRIT. 42.3 % (36.0-48.0); HEMOGLOBIN. 13.5 g/dL (12.0-16.0); LYMPHOCYTES % 34.8 % (20.0-50.0); MEAN CORPUSCULAR HEMOGLOBIN 33.9 pg (28.0-32.0); MEAN PLATELET VOLUME 9.5 fl (7.4-10.4); MONOCYTES % 11.7 % (2.0-8.0); NEUTROPHILS % 47.4 % (40.0-76.0); PLATELET 187 x1000/uL (130-400); RED BLOOD CELL COUNT 3.99 mill/uL (4.2-5.4); RED CELL DISTRIBUTION WIDTH 15.7 % (11.6-14.6)
[2019-08-13 11:26] LABS: PARTIAL THROMBOPLASTIN TIME 27.6 sec (23.4-31.0); PROTHROMBIN TIME 10.8 sec (9.6-11.0)
[2019-08-13 11:27] LABS: CHLORIDE 100 mEq/L (98-107)
[2019-08-13] MEDS ORDERED: LIDOCAINE HCL/EPINEPHRINE 1%-EPI 1:100,000 20 ML VIAL ONE (12:09)
[2019-08-13] MEDS ORDERED: ONDANSETRON HCL 4MG/2ML INJ IV ONE (12:15)
[2019-08-13] MEDS ORDERED: FENTANYL CITRATE/PF 50MCG/ML 2ML VIAL IV ONE (12:15)
[2019-08-13] MEDS ORDERED: CEFAZOLIN 1000MG PREMIX 50 ML IV ONE (13:00)
[2019-08-13 14:11] LABS: HEMATOCRIT 39.4 % (36.0-48.0); HEMOGLOBIN 12.6 g/dL (12.0-16.0); MEAN CORPUSCULAR HEMOGLOBIN 33.7 pg (28.0-32.0); MEAN CORPUSCULAR VOLUME 105.6 fL (81.0-99.0); PLATELET 171 x1000/uL (130-400); RED BLOOD CELL COUNT 3.73 mill/uL (4.2-5.4); RED CELL DISTRIBUTION WIDTH 15.1 % (11.6-14.6)
[2019-08-13 18:25] VITALS: BP 106/32
[2019-08-13 20:00] VITALS: BP 93/75
[2019-08-13 21:00] VITALS: BP 105/54
[2019-08-13] MEDS: CEFAZOLIN 1000MG PREMIX 50 ML IV SCH (21:37)
[2019-08-13] MEDS: ONDANSETRON HCL 4MG/2ML INJ IV PRN (21:38)
[2019-08-13] MEDS: MORPHINE SULFATE 2 MG/ML CPJ (NOT FOR IM USE) IV PRN (21:39)
[2019-08-14] VITALS: BP 109/51
[2019-08-14 04:00] VITALS: BP 103/50
[2019-08-14 08:00] VITALS: BP 100/47
[2019-08-14] MEDS: CEFAZOLIN 1000MG PREMIX 50 ML IV SCH (08:47)
[2019-08-14] MEDS ORDERED: SIMETHICONE 80MG TABLET CHEW PO PRN (10:15)
[2019-08-14] MEDS: MORPHINE SULFATE 2 MG/ML CPJ (NOT FOR IM USE) IV PRN ×2 (11:42→22:25)
[2019-08-14 11:51] VITALS: BP 113/54
[2019-08-14 12:04] LABS: BASOPHILS % 0.3 % (0.0-2.0); EOSINOPHILS % 2.1 % (0.0-5.0); HEMOGLOBIN. 12.3 g/dL (12.0-16.0); LYMPHOCYTES % 10.2 % (20.0-50.0); MEAN CORPUSCULAR HEMOGLOBIN 33.9 pg (28.0-32.0); MEAN CORPUSCULAR VOLUME 104.8 fL (81.0-99.0); MEAN PLATELET VOLUME 9.5 fl (7.4-10.4); NEUTROPHILS % 76.4 % (40.0-76.0); PLATELET 150 x1000/uL (130-400); RED BLOOD CELL COUNT 3.63 mill/uL (4.2-5.4); RED CELL DISTRIBUTION WIDTH 15.3 % (11.6-14.6)
[2019-08-14] MEDS: ONDANSETRON HCL 4MG/2ML INJ IV PRN (13:35)
[2019-08-14 16:00] VITALS: BP 91/39
[2019-08-14 20:00] VITALS: BP 120/67
[2019-08-14 21:08] LABS: BASOPHILS % 0.1 % (0.0-2.0); EOSINOPHILS % 1.9 % (0.0-5.0); HEMATOCRIT. 36.2 % (36.0-48.0); HEMOGLOBIN. 11.6 g/dL (12.0-16.0); LYMPHOCYTES % 7.2 % (20.0-50.0); MEAN CORPUSCULAR VOLUME 106.5 fL (81.0-99.0); MEAN PLATELET VOLUME 8.8 fl (7.4-10.4); MONOCYTES % 8.9 % (2.0-8.0); NEUTROPHILS % 81.9 % (40.0-76.0); PLATELET 118 x1000/uL (130-400)
[2019-08-14] MEDS: DOCUSATE SODIUM 250MG CAPSULE PO SCH (22:25)
[2019-08-15] VITALS: BP 106/75
[2019-08-15] MEDS ORDERED: SEVE800T8 MT (01:14)
[2019-08-15 04:00] VITALS: BP 110/68
[2019-08-15 06:34] LABS: BASOPHILS % 0.3 % (0.0-2.0); EOSINOPHILS % 5.2 % (0.0-5.0); HEMATOCRIT. 36.9 % (36.0-48.0); HEMOGLOBIN. 11.7 g/dL (12.0-16.0); LYMPHOCYTES % 11.9 % (20.0-50.0); MEAN CORPUSCULAR HEMOGLOBIN 33.8 pg (28.0-32.0); MEAN CORPUSCULAR VOLUME 106.9 fL (81.0-99.0); MEAN PLATELET VOLUME 9.2 fl (7.4-10.4); MONOCYTES % 12.8 % (2.0-8.0); NEUTROPHILS % 69.8 % (40.0-76.0); PLATELET 127 x1000/uL (130-400); RED BLOOD CELL COUNT 3.45 mill/uL (4.2-5.4); RED CELL DISTRIBUTION WIDTH 15.3 % (11.6-14.6)
[2019-08-15 08:00] VITALS: BP 108/55
[2019-08-15] MEDS ORDERED: ENOXAPARIN 30MG/0.3ML SYR SUBCUT SCH (09:00)
[2019-08-15] MEDS: DOCUSATE SODIUM 250MG CAPSULE PO SCH (09:03)
[2019-08-15 10:45] VITALS: BP_SYST 100; BP_SYST 96; BP_DIAS 47; BP_DIAS 53
[2019-08-15 11:59] VITALS: BP 95/25
[2019-08-15 13:26] VITALS: BP 96/53
== END 2019-08-15 15:20 | disposition home or self-care (01) | DRG 579 ==
LOC: ER 10:25 → 8WST 12:16 → EDBEDREQTM 12:30 → EDBEDREQ 12:30 → EDBEDREQSVC 12:30 → ENRESERV 16:49 → 8WST 18:20
PROVIDERS: ADMIT Internal Medicine; ATTEND Internal Medicine
PROC: 5A1D70Z Performance of Urinary Filtration, Intermittent, Less than 6 Hours Per Day (ICD-10-PCS; principal; 2019-08-13)
PROC: 0JQD0ZZ Repair Right Upper Arm Subcutaneous Tissue and Fascia, Open Approach (ICD-10-PCS; 2019-08-14)
DX: S41.111A Laceration without foreign body of right upper arm, initial encounter (principal); N18.6 End stage renal disease; I12.0 Hypertensive chronic kidney disease with stage 5 chronic kidney disease or end stage renal disease; I95.9 Hypotension, unspecified; S01.01XA Laceration without foreign body of scalp, initial encounter; Y93.01 Activity, walking, marching and hiking; J44.9 Chronic obstructive pulmonary disease, unspecified; W18.30XA Fall on same level, unspecified, initial encounter; F41.9 Anxiety disorder, unspecified; M32.9 Systemic lupus erythematosus, unspecified; Y92.89 Other specified places as the place of occurrence of the external cause; Y99.8 Other external cause status; Z79.01 Long term (current) use of anticoagulants; Z99.2 Dependence on renal dialysis; Z88.1 Allergy status to other antibiotic agents; Z88.8 Allergy status to other drugs, medicaments and biological substances
CPT/HCPCS: 36415; 71045; 80048; 80053; 83880; 84484; 85025; 85027; 86850; 86900; 86920; 90715; 93005; 99285; J0690; J2270; J2405; J3010; J3490